=== PATIENT | female | born 1995 | race Caucasian/White ===

== ENCOUNTER 2018-10-17 21:25 | Emergency (ER) | payer OTHER ==
[~2018-10-17] VITALS: Ht 165.1 cm; Wt 63.5 kg
[~2018-10-17 21:25] MED LIST: PROTONIX40 MG PO
[2018-10-18] MEDS ORDERED: ZITHROMAX500 MG PO (05:24)
[2018-10-18] MEDS ORDERED: KETO10TA2 PO (05:24)
== END 2018-10-18 06:06 | disposition home or self-care (01) ==
LOC: ER 21:25
DX: J06.9 Acute upper respiratory infection, unspecified (principal); J11.1 Influenza due to unidentified influenza virus with other respiratory manifestations; E86.0 Dehydration; K29.70 Gastritis, unspecified, without bleeding

== ENCOUNTER 2021-06-12 13:55 | Inpatient (IN) | payer OTHER ==
[~2021-06-12] VITALS: Ht 165.1 cm; Wt 74.8 kg
[~2021-06-12 13:55] MED LIST changes: +KETO10TA2 PO; +ZITHROMAX500 MG PO
[2021-06-13] MEDS ORDERED: DICLOFENAC POTA50 MG (08:24)
[2021-06-13] MEDS ORDERED: METAXALONE800 MG (08:24)
== END 2021-06-13 09:40 | disposition home or self-care (01) | DRG 818 ==
LOC: ER 13:55 → SEC-K 19:33 → O/R 06-13 07:12
PROVIDERS: ADMIT Obstetrics & Gynecology; ATTEND Obstetrics & Gynecology
PROC: 0UB54ZZ Excision of Right Fallopian Tube, Percutaneous Endoscopic Approach (ICD-10-PCS; 2021-06-12)
PROC: 0UDB7ZX Extraction of Endometrium, Via Natural or Artificial Opening, Diagnostic (ICD-10-PCS; 2021-06-12)
PROC: 10T24ZZ Resection of Products of Conception, Ectopic, Percutaneous Endoscopic Approach (ICD-10-PCS; principal; 2021-06-12 21:00)
DX: O00.101 Right tubal pregnancy without intrauterine pregnancy (principal); O08.1 Delayed or excessive hemorrhage following ectopic and molar pregnancy

== ENCOUNTER 2021-06-15 19:00 | Emergency (ER) | payer OTHER ==
[~2021-06-15] VITALS: Ht 165.1 cm; Wt 77.1 kg
[~2021-06-15 19:00] MED LIST changes: +DICLOFENAC POTA50 MG; +METAXALONE800 MG
[2021-06-15] MEDS ORDERED: TYLENOL (19:11)
== END 2021-06-15 20:18 | disposition home or self-care (01) ==
LOC: ER 19:00
DX: R10.2 Pelvic and perineal pain (principal); Z03.818 Encounter for observation for suspected exposure to other biological agents ruled out

== ENCOUNTER 2021-06-16 00:24 | Inpatient (IN) | payer OTHER ==
[~2021-06-16] VITALS: Ht 165.1 cm; Wt 77.1 kg
[~2021-06-16 00:24] MED LIST changes: +TYLENOL
--- NOTE | 2021-06-16 00:44 | NUR ---
SE RECIBE FEMINA ALERTA Y ORIENTADA POR STELLA ESFERAS, EN AMBULANCIA. REFIERE QUE PRESENTA DOLOR PELVICO DESDE PAOLA. REFIERE ROCK SIDO OPERADA DE UN EMBARAZO ECTOPICO POR DR. HUITRON. REFEIRE NO ROCK CONSEGUIDO MEDICAMENTO PARA EL DOLOR EN LA FARMACIA. ADEMAS REFIERE QUE VISITO LA RITIKA DE EMERGENCIAS PAOLA EN LA NOCHE Y EL TORADOL ORDENADO LE PROVOCO REACCION ALERGICA.
--- NOTE | 2021-06-16 02:01 | NUR ---
MRS. AKINS EDUCA A PTE SOBRE [place] MEDICO ESTA REFIERE ENTENDER. SE TAMMY MUESTRAS DE LABORATORIO UTILZIADNO MEDIDAS ASEPTICAS. SE COLOCA H/L EL CUAL S EENCUENTRA PATENTE Y WILLIAM DE EDEMA. SE ADMINISTRAN MEDCIAMENTOS A PTE LOS CUALES TOLERA. PTE SE CONTINUA MONITORIANDO POR CAMBIOS.
[2021-06-17] MEDS ORDERED: METAXALONE800 MG (08:11)
[2021-06-17] MEDS ORDERED: TYLENOL325 MG (08:11)
[2021-06-19] MEDS ORDERED: AMOX1TAB5 PO (13:17)
== END 2021-06-19 13:54 | disposition home or self-care (01) | DRG 864 ==
LOC: ER 00:24 → OB/GYN 08:53
PROVIDERS: ADMIT Obstetrics & Gynecology; ATTEND Obstetrics & Gynecology
DX: R50.82 Postprocedural fever (principal); R10.2 Pelvic and perineal pain; G89.18 Other acute postprocedural pain; Z20.822 Contact with and (suspected) exposure to COVID-19

== ENCOUNTER 2023-02-19 14:13 | Inpatient (IN) | payer OTHER ==
[~2023-02-19] VITALS: Ht 162.6 cm; Wt 71.2 kg
[~2023-02-19 14:13] MED LIST changes: +AMOX1TAB5 PO; +TYLENOL325 MG
--- NOTE | 2023-02-19 15:10 | NUR ---
PTE ALERTA Y ORIENTADA X3 EN COMPANIA DE FAMILIAR. PTE CON REFERIDO MEDICO DE EL DR. HUITRON.
--- NOTE | 2023-02-19 15:44 | NUR ---
EVALUA PTE. SE EDUCA SOBRE [place] MEDICO, REFIERE COMPRENDER. SE REALIZAN MUESTRAS DE LABORATORIO BAJO MEDIDAS ASEPTICAS. SE ADMINISTRA IV'S JUSTICE ORDEN MEDICA. PTE MANEJADA POR .
[2023-02-20] MEDS ORDERED: MACRODANTIN100 M1 PO (08:23)
[2023-02-20] MEDS ORDERED: TRAM1TAB98 PO (08:24)
== END 2023-02-20 11:04 | disposition home or self-care (01) | DRG 817 ==
LOC: ER 14:13 → O/R 15:49 → OB/GYN 21:09
PROVIDERS: ADMIT Obstetrics & Gynecology; ATTEND Obstetrics & Gynecology
PROC: 0UB64ZZ Excision of Left Fallopian Tube, Percutaneous Endoscopic Approach (ICD-10-PCS; 2023-02-19)
PROC: 0UDB7ZZ Extraction of Endometrium, Via Natural or Artificial Opening (ICD-10-PCS; 2023-02-19)
PROC: 10D24ZZ Extraction of Products of Conception, Ectopic, Percutaneous Endoscopic Approach (ICD-10-PCS; principal; 2023-02-19 16:00)
DX: O00.102 Left tubal pregnancy without intrauterine pregnancy (principal); K66.1 Hemoperitoneum; Z20.822 Contact with and (suspected) exposure to COVID-19